=== PATIENT | male | born 1960 | race Caucasian/White ===

== ENCOUNTER 2017-11-08 10:56 | Emergency (ER) | payer MEDICAID ==
[2017-11-08 11:20] VITALS: TEMP 98
--- NOTE | 2017-11-08 11:42 | ED PDOC ---
Arrival/HPI <Jung Montaño - Last Filed: 11/08/17 13:00> <Erwin Petersen - Last Filed: 11/08/17 16:54> - General Chief Complaint: Lower Extremity Problem/Injury Time Seen by Provider: 11/08/17 11:03 - History of Present Illness Narrative History of Present Illness (Text): 11/08/17 11:31 Pt is a 57 yo M with no significant PMH presents to ED with complaints of left knee swelling. Pt states that left knee swelling has been intermittent over the last year. The current episode has been on going for the past week. Pt states that his knee will swell and can extend down to his ankle. Pt states that there is pain in his left knee when he walks, but it gradually improves the more he walks. Pt states that he often feels a popping and clicking sensation when he walks. Pt denies any trauma or instability. Pt also complains of increased urinary frequency, dysuria, penile discharge, and right flank pain for the past week. Pt states that he is sexually active, but uses condoms. Pt denies foul smell, renal colic, or hematuria. PMD: Bipin (Jung Montaño) Past Medical History - Provider Review Nursing Documentation Reviewed: Yes - Infectious Disease Hx of Infectious Diseases: None - Psychiatric Hx Depression: No Hx Emotional Abuse: No Hx Physical Abuse: No Hx Substance Use: No - Anesthesia Hx Anesthesia: No - Suicidal Assessment Feels Threatened In Home Enviroment: No <Jung Montaño - Last Filed: 11/08/17 13:00> Family/Social History - Physician Review Nursing Documentation Reviewed: Yes Family/Social History: Other (non-contributory) Smoking Status: Unknown If Ever Smoked Hx Alcohol Use: Yes Frequency of alcohol use: Socially Hx Substance Use: No Hx Substance Use Treatment: No <Jung Montaño - Last Filed: 11/08/17 13:00> Allergies/Home Meds <Jung Montaño - Last Filed: 11/08/17 13:00> <Erwin Petersen - Last Filed: 11/08/17 16:54> Allergies/Adverse Reactions: Allergies No Known Allergies Allergy (Verified 11/08/17 11:30) Review of Systems - Review of Systems Constitutional: Normal Eyes: Normal ENT: Normal Respiratory: Normal Cardiovascular: Normal Gastrointestinal: Normal Genitourinary Male: Dysuria, Frequency, Other (discharge). absent: Hematuria Musculoskeletal: Arthralgias (left knee), Joint Swelling (left knee) Skin: Normal Neurological: Normal Endocrine: Normal Hemo/Lymphatic: Normal Psychiatric: Normal <Jung Montaño - Last Filed: 11/08/17 13:00> Physical Exam Vital Signs Reviewed: Yes Temperature: Afebrile Blood Pressure: Normal Pulse: Regular Respiratory Rate: Normal Appearance: Positive for: Well-Appearing Pain Distress: Mild Mental Status: Positive for: Alert and Oriented X 3 - Systems Exam Head: Present: Atraumatic, Normocephalic Extroacular Muscles: Present: EOMI Neck: Present: Normal Range of Motion Respiratory/Chest: Present: Clear to Auscultation. No: Respiratory Distress, Accessory Muscle Use Cardiovascular: Present: Regular Rate and Rhythm, Normal S1, S2. No: Murmurs Abdomen: No: Tenderness, Distention, Rebound, Guarding Genitourinary Male: Present: Normal External Genitalia. No: Penile Discharge, Testicle Tenderness, Testicle Swelling Back: Present: Normal Inspection. No: CVA Tenderness, Midline Tenderness, Paraspinal Tenderness Upper Extremity: Present: Normal Inspection Lower Extremity: Present: NORMAL PULSES, Neurovascularly Intact, Other (Left knee swelling. Positive patellar grind test. Negative anterior/posterior drawer. Negative varus/valgus strain. Negative Fatou's test. Normal Patellar tracking. No fibular head or tibial tuberosity tenderness.). No: Quentin's Sign, Tenderness (no tenderness, swelling, erythema of the left lower extremity inferior to tibial tuberosity), Erythema Neurological: Present: GCS=15, CN II-XII Intact Skin: Present: Warm, Dry, Normal Color Psychiatric: Present: Alert, Oriented x 3 <Jung Montaño - Last Filed: 11/08/17 13:00> Vital Signs Temp Pulse Resp BP Pulse Ox 11/08/17 12:44 82 17 145/80 99 11/08/17 11:20 98.0 F 11/08/17 11:19 88 18 151/77 H 100 Medical Decision Making <Jung Montaño - Last Filed: 11/08/17 13:00> <Erwin Petersen - Last Filed: 11/08/17 16:54> ED Course and Treatment: 11/08/17 11:54 Assessment: 57 yo M presents to ED with left knee swelling, dysuria, and penile discharge for past week. Plan: - UA - Chlamydia/Gonorrhea - IM Ceftriaxone - PO Azithromycin - Ramiro bandage - Reassess and disposition 11/08/17 12:02 Advised patient that due to his complaint of penile discharge that he would need to be empirically treated for Chlamydia and Gonorrhea as labs would take 2- 3 days to return. Patient was advised to inform his sexual partners of his situation and advise them that they should be medically evaluated. Patient understood and agreed. Regarding left knee pain, discussed that his symptoms were likely chronic in nature. Referral to orthopedist was given and patient was advised to follow up as an outpatient for further evaluation. 11/08/17 12:23 UA indeterminate for UTI, no antibiotics at this time. We will follow up urine culture with patient if positive culture results and treat accordingly. UA also showed moderate bacteria which could be 2/2 Gonococcal infection. Patient will be discharged with ramiro bandage and orthopedic referral. Urine culture and Chlaymydia/GC test will be followed up on. (Jung Montaño) 11/08/17 11:54 57 yo male c/o left knee pain and secondary c/o of penile discharge. Agree with resident history and physical, assessment and plan. Patient was examined by me as well. No penile discharge appreciated. Normal genital exam. Back was no CVAT or tenderness at all. Abdomen is soft and not distended. Left knee pain as documented by resident. Plan is to discharge patient home with PMD f/u and Orthopedics. (Erwin Petersen) - Lab Interpretations Lab Results: Lab Results 11/08/17 11:50: Urine Color Light yellow, Urine Appearance Clear, Urine pH 7.0, Ur Specific [place] 1.015, Urine Protein Negative, Urine Glucose (UA) Negative, Urine Ketones Negative, Urine Blood Trace-intact H, Urine Nitrate Negative, Urine Bilirubin Negative, Urine Urobilinogen 0.2, Ur Leukocyte Esterase Trace H , Urine RBC 2 - 5, Urine WBC 5 - 10, Ur Epithelial Cells None, Amorphous Sediment Few, Urine Bacteria Mod - Medication Orders Current Medication Orders: Discontinued Medications Azithromycin (Zithromax) 1,000 mg PO STAT STA PRN Reason: Protocol Stop: 11/08/17 11:44 Last Admin: 11/08/17 11:54 Dose: 1,000 mg Ceftriaxone Sodium (Rocephin) 250 mg IM STAT STA PRN Reason: Protocol Stop: 11/08/17 11:44 Last Admin: 11/08/17 11:55 Dose: 250 mg IM Administration Charges Document 11/08/17 11:55 SF (Rec: 11/08/17 11:55 SF [facility] [id number] Injection Site MAR Injection Site Right Gluteus Kendrick Charges for Administration # of IM Administrations 1 Disposition/Present on Arrival - Present on Arrival Any Indicators Present on Arrival: No History of DVT/PE: No History of Uncontrolled Diabetes: No Urinary Catheter: No History of Decub. Ulcer: No History Surgical Site Infection Following: None - Disposition Have Diagnosis and Disposition been Completed?: Yes Disposition Time: 12:27 Patient Plan: Discharge <Jung Montaño - Last Filed: 11/08/17 13:00> - Disposition Have Diagnosis and Disposition been Completed?: Yes <Erwin Petersen - Last Filed: 11/08/17 16:54> - Disposition Diagnosis: Osteoarthritis of left knee, Discharge from penis without blood Disposition: HOME/ ROUTINE Condition: STABLE Discharge Instructions (ExitCare): Osteoarthritis (DC), Sexually-Transmitted Diseases (DC) Additional Instructions: 1. Follow up with orthopedist within 1 week 2. Use ramiro bandage for support, may remove when sleeping 3. Use ice three times a day for up to 15 minutes 4. Use motrin as needed for pain; take with food 5. Please inform all sexual partners that they should be medically evaluated for STD's 6. Follow up on urine culture and gonorrhea/chlamydia testing 7. Return to ED if symptoms worsen Prescriptions: Ibuprofen [Motrin] 600 mg PO Q6H PRN #20 tab PRN Reason: Pain, Mild (1-3) Referrals: Mari Voss MD [Primary Care Provider] - Follow up with primary Mallory Ireland MD [Staff Provider] - Follow up with primary Forms: [employer] (Ghanaian)
[2017-11-08] MEDS ORDERED: cefTRIAXone (Rocephin) 250 mg Inj IM STA (11:43)
[2017-11-08 12:04] LABS: URINE BILIRUBIN NEGATIVE (NEGATIVE); URINE BLOOD TRACE-INTACT (NEGATIVE); URINE GLUCOSE (UA) NEGATIVE (NEGATIVE); URINE LEUKOCYTE ESTERASE TRACE Leu/uL (NEGATIVE); URINE NITRATE NEGATIVE (NEGATIVE); URINE PROTEIN NEGATIVE mg/dL (<30 mg/dL); URINE UROBILINOGEN 0.2 E.U./dL (<1 E.U./dL)
[2017-11-08 12:08] LABS: URINE APPEARANCE CLEAR (CLEAR); URINE COLOR LIGHT YELLOW (YELLOW)
[2017-11-08 12:19] LABS: URINE AMORPHOUS SEDIMENT FEW; URINE BACTERIA MOD (NEG)
[2017-11-08 12:45] VITALS: BP 145/80; PULSE 82; RESP 17; O2SAT 99
== END 2017-11-08 12:44 | disposition home or self-care (01) ==
LOC: ED 10:56
DX: M17.12 Unilateral primary osteoarthritis, left knee (principal); R36.9 Urethral discharge, unspecified
CPT/HCPCS: 81001; 87086; 87491; 87591; 96372; 99285; J0696

== ENCOUNTER 2018-01-16 12:11 | Emergency (ER) | payer MEDICAID ==
[2018-01-16] MEDS ORDERED: cefTRIAXone (Rocephin) 250 mg Inj IM STA (13:21)
[2018-01-16 13:23] VITALS: BMI 32.3
--- NOTE | 2018-01-16 13:26 | ED PDOC ---
Arrival/HPI - General Chief Complaint: Male Genitourinary Time Seen by Provider: 01/16/18 13:10 Historian: Patient - History of Present Illness Symptom Onset: Gradual Symptom Course: Unchanged Severity Level: Mild Associated Symptoms (Text): 01/16/18 13:23 Patient reports unprotected sex with an unknown partner 4 days ago. He has developed a penile discharge and staining in his underwear. No abdominal pain nausea vomiting diarrhea constipation or GI bleed. No fever or chills. Some urinary urgency. Past Medical History - Infectious Disease Hx of Infectious Diseases: None - Psychiatric Hx Depression: No Hx Emotional Abuse: No Hx Physical Abuse: No Hx Substance Use: No - Anesthesia Hx Anesthesia: No - Suicidal Assessment Feels Threatened In Home Enviroment: No Family/Social History - Physician Review Nursing Documentation Reviewed: Yes Family/Social History: Unknown Family HX Smoking Status: Current Some Days Smoker Hx Alcohol Use: Yes Frequency of alcohol use: Socially Hx Substance Use: No Hx Substance Use Treatment: No Allergies/Home Meds Allergies/Adverse Reactions: Allergies No Known Allergies Allergy (Verified 11/08/17 11:30) Review of Systems - Physician Review All systems were reviewed & negative as marked: Yes Physical Exam Vital Signs Temp Pulse Resp BP Pulse Ox 01/16/18 13:30 97.8 F 70 17 120/68 99 Temperature: Afebrile Blood Pressure: Normal Pulse: Regular Respiratory Rate: Normal Appearance: Positive for: Well-Appearing, Non-Toxic, Comfortable Pain Distress: None Mental Status: Positive for: Alert and Oriented X 3 - Systems Exam Respiratory/Chest: Present: Clear to Auscultation, Good Air Exchange. No: Respiratory Distress, Accessory Muscle Use Cardiovascular: Present: Regular Rate and Rhythm, Normal S1, S2. No: Murmurs Abdomen: No: Tenderness, Distention, Peritoneal Signs Genitourinary Male: Present: Normal External Genitalia, Circumcised Penis, Penile Discharge. No: Lesions, Testicle Tenderness, Penile Swelling, Masses, Erythema, Testicle Swelling Medical Decision Making - Medication Orders Current Medication Orders: Discontinued Medications Azithromycin (Zithromax) 1,000 mg PO STAT STA PRN Reason: Protocol Stop: 01/16/18 13:23 Ceftriaxone Sodium (Rocephin) 250 mg IM STAT STA PRN Reason: Protocol Stop: 01/16/18 13:22 Disposition/Present on Arrival - Present on Arrival Any Indicators Present on Arrival: No History of DVT/PE: No History of Uncontrolled Diabetes: No Urinary Catheter: No History of Decub. Ulcer: No History Surgical Site Infection Following: None - Disposition Have Diagnosis and Disposition been Completed?: Yes Diagnosis: STD (male) Disposition: HOME/ ROUTINE Disposition Time: 13:24 Patient Plan: Discharge Patient Problems: Current Active Problems Problem Status Onset STD (male) Acute Condition: GOOD Discharge Instructions (ExitCare): Urethritis, Chlamydia and Gonorrhea, Screening for Sexually Transmitted Infections Additional Instructions: Culture pending. Forms: [employer] (Cuban)
[2018-01-16 13:31] VITALS: BP 120/68; PULSE 70; RESP 17; TEMP 97.8; O2SAT 99
== END 2018-01-16 14:11 | disposition home or self-care (01) ==
LOC: ED 12:11
DX: A64 Unspecified sexually transmitted disease (principal); F17.200 Nicotine dependence, unspecified, uncomplicated
CPT/HCPCS: 87491; 87591; 96372; 99282; J0696

== ENCOUNTER 2018-01-29 09:24 | Emergency (ER) | payer MEDICAID ==
[2018-01-29 09:28] VITALS: BMI 33.2
[2018-01-29 09:33] VITALS: RESP 18; TEMP 98.2
--- NOTE | 2018-01-29 10:03 | ED PDOC ---
Arrival/HPI - General Chief Complaint: Male Genitourinary Time Seen by Provider: 01/29/18 10:02 Historian: Patient - History of Present Illness Narrative History of Present Illness (Text): 01/29/18 10:03 This 57 yo male with pmh chlamydia, Monorchism, presents to this ED c/o dysuria , and mild b/l lower back pain for few days. Patient stated symptoms are similar to previous ED visit when he was Dx. Chlamydia. Patient denies penile discharge. Patient denies fever, penile rash, testicular pain, groin pain, sob , cp, arthralgias, dizziness, or abnormal gait. Time/Duration: Other (see hpi) Context: Home Past Medical History - Provider Review Nursing Documentation Reviewed: Yes - Infectious Disease Hx of Infectious Diseases: None - Genitourinary/Gynecological Other/Comment: positive to chlamydia 3 weeks ago - Psychiatric Hx Depression: No Hx Emotional Abuse: No Hx Physical Abuse: No Hx Substance Use: No - Anesthesia Hx Anesthesia: No - Suicidal Assessment Feels Threatened In Home Enviroment: No Family/Social History - Physician Review Nursing Documentation Reviewed: Yes Family/Social History: Other (noncontributory) Smoking Status: Current Some Days Smoker Hx Alcohol Use: Yes Hx Substance Use: No Hx Substance Use Treatment: No Allergies/Home Meds Allergies/Adverse Reactions: Allergies No Known Allergies Allergy (Verified 11/08/17 11:30) Review of Systems - Review of Systems Constitutional: Normal. absent: Fatigue, Weight Change, Fevers Eyes: Normal ENT: Normal Respiratory: Normal. absent: SOB, Cough Cardiovascular: Normal Gastrointestinal: Normal Genitourinary Male: Dysuria. absent: Frequency, Hematuria Musculoskeletal: Back Pain. absent: Arthralgias, Neck Pain, Joint Swelling, Myalgias Skin: Normal. absent: Rash Neurological: Normal. absent: Headache, Dizziness Endocrine: Normal Hemo/Lymphatic: Normal Psychiatric: Normal Physical Exam Vital Signs Temp Pulse Resp BP Pulse Ox 01/29/18 09:24 98.2 F 76 18 135/84 96 Temperature: Afebrile Blood Pressure: Normal Pulse: Regular Respiratory Rate: Normal Appearance: Positive for: Well-Appearing, Non-Toxic, Comfortable Pain Distress: None Mental Status: Positive for: Alert and Oriented X 3 - Systems Exam Head: Present: Atraumatic, Normocephalic Pupils: Present: PERRL Extroacular Muscles: Present: EOMI Conjunctiva: Present: Normal Mouth: Present: Moist Mucous Membranes Neck: Present: Normal Range of Motion Respiratory/Chest: Present: Clear to Auscultation, Good Air Exchange. No: Respiratory Distress, Accessory Muscle Use Cardiovascular: Present: Regular Rate and Rhythm, Normal S1, S2. No: Murmurs Abdomen: No: Tenderness, Distention, Peritoneal Signs Genitourinary Male: Present: Normal External Genitalia, Circumcised Penis, Other ((+) Monorchism (left testicle is present)). No: Lesions, Penile Discharge, Testicle Tenderness, Penile Swelling, Masses, Erythema, Hernias, Testicle Swelling Back: Present: Normal Inspection. No: CVA Tenderness, Midline Tenderness, Paraspinal Tenderness, Pain with Leg Raise Upper Extremity: Present: Normal Inspection. No: Cyanosis, Edema Lower Extremity: Present: Normal Inspection. No: Edema Neurological: Present: GCS=15, CN II-XII Intact, Speech Normal Skin: Present: Warm, Dry, Normal Color. No: Rashes Psychiatric: Present: Alert, Oriented x 3, Normal Insight, Normal Concentration Medical Decision Making ED Course and Treatment: 01/29/18 10:21 Patient came c/o similar symptoms when he was Dx. with Chlamydia. Patient wants to be treated. I offered patient labs, and ultrasound of testicle and pelvis. Patient refused to have tis test. Patient prefers to f/u pmd for revaluation. Patient only wants meds. I ordered Rocephin 250 mg IM. This time I will order Doxycycline PO. I told patient to avoid excessive sun exposure to prevent severe sun burn. I also recommended patient to stop sexual intercourse for 4 weeks, and to have Dr. Voss retest him for STD in 4 weeks. I also told patient to let partners know about the plan, and his partners must do the same. To always use protection. To return to emergency if fever or worsening of symptoms. Re-evaluation Time: 10:21 Reassessment Condition: Re-examined, Improved - Medication Orders Current Medication Orders: Ceftriaxone Sodium (Rocephin) 250 mg IM STAT STA PRN Reason: Protocol Stop: 01/29/18 10:15 Disposition/Present on Arrival - Present on Arrival Any Indicators Present on Arrival: No History of DVT/PE: No History of Uncontrolled Diabetes: No Urinary Catheter: No History of Decub. Ulcer: No History Surgical Site Infection Following: None - Disposition Have Diagnosis and Disposition been Completed?: Yes Diagnosis: Urethritis, Back pain Disposition: HOME/ ROUTINE Disposition Time: 10:25 Patient Plan: Discharge Patient Problems: Current Active Problems Problem Status Onset Back pain Acute Urethritis Acute Condition: GOOD Discharge Instructions (ExitCare): Urethritis (DC) Additional Instructions: Call private doctor for follow up visit in 1-2 days. Take medication as instructed. Do not have sexual intercourse for at least 4 weeks, and have Dr. Vsos re-order STD test in his office, and only have sexual intercourse if repeat STD test is negative. Let partners know about infection, and tell them to do the same plan. Return to ED if you develop fever, testicular pain or worsening of symptoms. Avoid sun exposure when taking Doxycycline because you could get a severe sun burn Prescriptions: Doxycycline Hyclate 100 mg PO BID #28 capsule Naproxen 500 mg PO BID PRN #14 tablet PRN Reason: Pain, Severe (8-10) Referrals: Mari Voss MD [Family Provider] - Follow up with primary Forms: [employer] ([place]ian)
[2018-01-29] MEDS ORDERED: cefTRIAXone (Rocephin) 250 mg Inj IM STA (10:14)
[2018-01-29 10:47] VITALS: BP 132/79; PULSE 88; O2SAT 99
== END 2018-01-29 10:46 | disposition home or self-care (01) ==
LOC: ED 09:24
DX: N34.2 Other urethritis (principal); M54.5 Low back pain
CPT/HCPCS: 87491; 87591; 96372; 99283; J0696